=== PATIENT | male | born 1970 | race Asian ===

== ENCOUNTER → 2016-09-09 | Outpatient (CLI) | payer BC ==
[~2016-09-09] MED LIST: AMOX875T PO; CHOL100010 PO; CHOL100026; CHOL20009; HYPEPOW8; LAMI1TAB; NSNN50
== END | disposition home or self-care (01) ==
LOC: C.RDSM 11:10
PROVIDERS: ATTEND Family Medicine
DX: M25.561 Pain in right knee (principal)

== ENCOUNTER → 2016-09-22 | Outpatient (CLI) | payer BC ==
--- NOTE | 2016-09-22 08:40 | DIAGNOSTIC IMAGING REPORT ---
MRI OF THE RIGHT KNEE CLINICAL HISTORY: Right knee pain. COMPARISON STUDY: Radiographs of the right knee dated 09/09/2016. TECHNIQUE: MRI of the right knee was performed utilizing proton density, T1, and T2-weighted sequences in the axial, sagittal, coronal planes. IV contrast was not administered for this examination. FINDINGS: Menisci: The medial and lateral menisci are intact. Ligaments: The anterior and posterior cruciate ligaments are intact. The medial and lateral collateral ligaments are within normal limits. Extensor mechanism: The extensor mechanism is intact. Hoffa's fat pad is normal in appearance. Articular cartilage and bone: There is significant marrow edema identified within the medial patellar facet, likely representing contusion. No definite fracture line is seen. There is a large anteriorly full-thickness cartilaginous defect identified within the medial patellar facet extending to the apex. This measures at least 12 mm and overlies the marrow edema. There is also loss of cartilage within the underlying femoral trochlea. There is mild fissuring (approximately 50%) within the articular cartilage along the weightbearing surface the medial compartment with minimal associated subchondral marrow edema. The articular cartilage within the medial and lateral compartments is otherwise preserved. A fabella is incidentally noted. Joint effusion: There is a small to moderate joint effusion. No definite joint body is identified. Soft tissues: The musculature surrounding the knee joint is normal in bulk and signal intensity. IMPRESSION: 1. There is no evidence of meniscal or ligamentous injury in the right knee. 2. There is marked marrow edema identified within the medial patellar facet, likely worsening bony contusion. No definite fracture is seen. 3. There is a 12 mm full-thickness cartilaginous defect identified within the medial patellar facet and approaching the apex. This overlies the region of marrow edema. 4. Small to moderate joint effusion. No definite joint body is identified. 5. Only mild arthritic change is seen in the medial compartment. Electronically signed by: Nj Ortiz M.D. 09/22/2016 8:38 AM Dictated Date/Time: 09/22/2016 8:29 AM
== END | disposition home or self-care (01) ==
LOC: C.MRI 06:47
PROVIDERS: ATTEND Family Medicine
DX: M25.561 Pain in right knee (principal); M25.461 Effusion, right knee; M24.00 Loose body in unspecified joint

== ENCOUNTER → 2016-10-19 | Outpatient (CLI) | payer BC ==
--- NOTE | 2016-10-19 08:42 | DIAGNOSTIC IMAGING REPORT ---
ABDOMINAL ULTRASOUND, RIGHT UPPER QUADRANT HISTORY: Hepatitis B. COMPARISON: Right upper quadrant ultrasound October 29, 2015. FINDINGS: Liver morphology is normal. The liver is not overtly cirrhotic by sonography. No hepatic lesions are identified. There are no gallstones. No biliary ductal dilatation is present. The pancreatic body is normal. The head and tail are obscured. There is no right hydronephrosis. IMPRESSION: 1. No hepatic lesions identified. Liver not overtly cirrhotic by sonography. Possible slight coarsening of hepatic echotexture. 2. No gallstones or biliary ductal dilatation. Electronically signed by: Williams Ramos M.D. 10/19/2016 8:41 AM Dictated Date/Time: 10/19/2016 8:38 AM
== END | disposition home or self-care (01) ==
LOC: C.ULTR 08:17
PROVIDERS: ATTEND Internal Medicine Gastroenterology
DX: B19.10 Unspecified viral hepatitis B without hepatic coma (principal)

== ENCOUNTER → 2017-10-25 | Outpatient (CLI) | payer OTHER ==
--- NOTE | 2017-10-25 07:43 | DIAGNOSTIC IMAGING REPORT ---
ULTRASOUND RIGHT UPPER QUADRANT ABDOMEN CLINICAL HISTORY: Chronic hepatitis B. COMPARISON STUDY: Abdominal ultrasound dated 10/19/2016. TECHNIQUE: Real-time, grayscale, and color flow sonography of the right upper quadrant of the abdomen was performed. Images are reviewed in the transverse and longitudinal planes. FINDINGS: Liver: The liver is normal in size and slightly heterogeneous in echotexture. There is no intrahepatic biliary ductal dilatation. The main portal vein is patent. There is no sonographic evidence of hepatic mass lesion. Gallbladder: The gallbladder is normal in appearance. No gallstones are identified. There is no gallbladder wall thickening or pericholecystic fluid. A sonographic Montoya's sign is reportedly absent. The common bile duct measures up to 0.4 cm in diameter. Pancreas: Visualized portions of the pancreatic head are normal in appearance. The majority of the pancreas was not well visualized. Right kidney: Survey images of the right kidney demonstrate normal size and echotexture. There is no hydronephrosis. Ascites: None. IMPRESSION: 1. There is no sonographic evidence of hepatic mass lesion. 2. No gallstones are identified. Electronically signed by: Nj Ortiz M.D. 10/25/2017 7:41 AM Dictated Date/Time: 10/25/2017 7:41 AM
== END | disposition home or self-care (01) ==
LOC: C.ULTR 06:52
PROVIDERS: ATTEND Internal Medicine Gastroenterology
DX: B18.1 Chronic viral hepatitis B without delta-agent (principal)

== ENCOUNTER → 2018-01-24 | Outpatient (CLI) | payer OTHER | END | disposition home or self-care (01) | LOC: C.RDSM 09:42 | PROVIDERS: ATTEND Orthopaedic Surgery Sports Medicine | DX: M25.561 Pain in right knee (principal) ==